=== PATIENT | male | born 1965 | race Caucasian/White ===

== ENCOUNTER 2019-06-07 13:02 | Emergency (ER) | payer BC, OTHER ==
[~2019-06-07] VITALS: Ht 177 cm; Wt 180.0 kg
[2019-06-07 14:57] LABS: BILIRUBIN,URINE NEGATIVE (NEGATIVE); CLARITY,URINE CLEAR; COLOR,URINE YELLOW; GLUCOSE, URINE (UA) NEGATIVE (NEGATIVE); KETONES,URINE NEGATIVE (NEGATIVE); LEUKOCYTE ESTERASE ,URINE NEGATIVE (NEGATIVE); NITRITE,URINE NEGATIVE (NEGATIVE); PROTEIN,URINE NEGATIVE (NEGATIVE)
--- NOTE | 2019-06-07 15:06 | Diagnostic Imaging Report ---
PROCEDURE: US Scrotum. TECHNIQUE: Multiple real-time grayscale images were obtained over the scrotum in various projections bilaterally. INDICATION: Lump on the scrotum. FINDINGS: Right testicle measures 5.7 x 2.8 x 3.5 cm, and the left testicle measures 5.8 x 2.8 x 3.8 cm. Both testes show fairly homogeneous echotexture. No discrete testicular mass is seen. There is blood flow to both testes. The right epididymis contains a 3 mm cyst. Left epididymal head is unremarkable. There is some heterogeneous tissue along the posteroinferior aspect of the left scrotum, extratesticular in location. This could potentially represent some enlargement of the epididymal tail. No hydrocele or varicocele is detected. IMPRESSION: 1. No evidence of testicular mass or vascular compromise. 2. Small right epididymal head cyst. 3. Extratesticular tissue heterogeneity posterior and inferior to the left testicle in the scrotal sac, exact etiology indeterminate. This may account for the lump felt by the patient. Follow-up could be performed to confirm stability. Dictated by: Dictated on workstation # [id number]
[2019-06-07 15:08] LABS: BACTERIA,URINE NEGATIVE /HPF; SQUAMOUS EPITHELIAL CELL,UR RARE /HPF
--- NOTE | 2019-06-07 15:18 | ED GU-Male ---
General Chief Complaint: Male Reproductive Stated Complaint: LUMP ON SCROTUM Nursing Triage Note: Pt ambulates to triage with c/o "lump in between scrotum" and sore/swollen left testicle x 1-2 wks. Pt was seen in PCP office, got PSA levels drawn and has US scheduled for Thurs. Pt denies any pain, reports a "dull ache". Pt denies any previous reproductive issues. Source: patient Exam Limitations: no limitations Allergies and Home Medications Allergies Coded Allergies: No Known Drug Allergies (Unverified , 06/07/19) Past Orfdixh-Xlnsrg-Hfntpv Hx Patient Social History Alcohol Use: Rarely Uses Recreational Drug Use: No Smoking Status: Never a Smoker 2nd Hand Smoke Exposure: No Recent Foreign Travel: No Contact w/Someone Who Travel: No Recent Infectious Disease Expo: No Recent Hopitalizations: No Physical Abuse: No Sexual Abuse: No Mistreated: No Fear: No Seasonal Allergies Seasonal Allergies: No Past Medical History Surgeries: Yes Tonsillectomy Respiratory: No Cardiac: No Neurological: No Genitourinary: No Gastrointestinal: No Musculoskeletal: Yes Chronic Back Pain Endocrine: No HEENT: No Cancer: No Psychosocial: No Integumentary: No Blood Disorders: No Physical Exam Vital Signs Vital Signs - First Documented 06/07/19 13:27 Temp 36.8 Pulse 72 Resp 19 B/P (MAP) 136/80 (98) Pulse Ox 98 O2 Delivery Room Air Capillary Refill : Less Than 3 Seconds Height, Weight, BMI Height: '" Weight: lbs. oz. kg; 57.00 BMI Method: Progress/Results/Core Measures Suspected Sepsis Recent Fever Within 48 Hours: No Infection Criteria Present: None New/Unexplained Altered Menta: No Sepsis Screen: No Definite Risk SIRS Temperature: Pulse: 72 Respiratory Rate: 19 Blood Pressure 136 /80 Mean: 98 Results/Orders Lab Results Laboratory Tests Test 06/07/19 14:45 Range/Units Urine Color YELLOW Urine Clarity CLEAR Urine pH 7.0 5-9 Urine Specific [place] 1.010 L 1.016-1.022 Urine Protein NEGATIVE NEGATIVE Urine Glucose (UA) NEGATIVE NEGATIVE Urine Ketones NEGATIVE NEGATIVE Urine Nitrite NEGATIVE NEGATIVE Urine Bilirubin NEGATIVE NEGATIVE Urine Urobilinogen 0.2 < = 1.0 MG/DL Urine Leukocyte Esterase NEGATIVE NEGATIVE Urine RBC (Auto) NEGATIVE NEGATIVE Urine RBC NONE /HPF Urine WBC NONE /HPF Urine Squamous Epithelial Cells RARE /HPF Urine Crystals NONE /LPF Urine Bacteria NEGATIVE /HPF Urine Casts NONE /LPF Urine Mucus NEGATIVE /LPF Urine Culture Indicated NO My Orders Orders - TIFF PIERCE Ua Culture If Indicated (06/07/19 13:49) Us Scrotum (Testicle) [id number] (06/07/19 13:49) Vital Signs/I&O 06/07/19 13:27 Temp 36.8 Pulse 72 Resp 19 B/P (MAP) 136/80 (98) Pulse Ox 98 O2 Delivery Room Air Capillary Refill : Less Than 3 Seconds Blood Pressure Mean: 98 Departure Impression Primary Impression: Epididymal cyst Disposition: HOME, SELF-CARE Condition: Stable/Unchanged Departure-Patient Inst. Decision time for Depature: 15:17 Referrals: JENIFFER MARTINEZ MD Add. Discharge Instructions: Call Dr. Martinez's office today to schedule an appointment for possible removal of the cyst. Return back to the emergency room for any worsening pain or any other concerns concerns as needed. All discharge instructions reviewed with patient and/or family. Voiced understanding. TIFF PIERCE Jun 07, 2019 15:18
[2019-06-07 15:25] VITALS: BP 136/80
== END 2019-06-07 15:25 | disposition home or self-care (01) ==
LOC: ER 13:04
DX: N50.3 Cyst of epididymis (principal); Z90.89 Acquired absence of other organs
CPT/HCPCS: 76870; 81000

== ENCOUNTER → 2019-12-10 | Outpatient (CLI) | payer BC, OTHER ==
--- NOTE | 2019-12-10 08:56 | Diagnostic Imaging Report ---
Indication: Right rib injury There appears be nondisplaced fractures of the right anterolateral 7th and 8th ribs and posterior 9th, 10th and 11th ribs. There are no effusions or pneumothoraces. There are some atelectasis at the right lung base. IMPRESSION: There appear to be nondisplaced fractures of 5 of the right lower ribs. Dictated by: Dictated on workstation # [id number]
== END ==
LOC: RAD 08:15
PROVIDERS: ATTEND Pediatrics
DX: S29.9XXA Unspecified injury of thorax, initial encounter (principal); W19.XXXA Unspecified fall, initial encounter
CPT/HCPCS: 71100

== ENCOUNTER → 2020-04-11 | Outpatient (CLI) | payer BC ==
--- NOTE | 2020-04-11 21:42 | Diagnostic Imaging Report ---
PROCEDURE: US Scrotum. TECHNIQUE: Multiple real-time grayscale images were obtained over the scrotum in various projections bilaterally. INDICATION: Left scrotal swelling COMPARISON with ultrasound of 06/07/2019. FINDINGS: The testicular parenchyma itself appeared symmetric and unremarkable. The epididymides appeared nonfocal. There was normal color Doppler blood flow to both testicles. Within the left hemiscrotum, there is an extratesticular mass effect posterior medial to the testicle measuring 7.0 x 6.0 x 6.0 cm. This does contain a small cystic component. No images were submitted showing its color Doppler blood flow however it is unclear if this was interrogated. There is a small left hydrocele. This process is increased in size from the prior visually, it was not fully measured on the previous study but its probably about 4 cm maximal on the comparison. The normal appearing epididymal tail could not be identified and it is conceivable that this is a lesion associated with the epididymal tail such as an adenomatoid tumor. In the appropriate clinical scenario, hematoma could have the same appearance. On the grayscale images as well as the cine loops, this did not appear to arise from the left testicle. No torsion or orchitis. IMPRESSION: Enlarging left scrotal apparently extratesticular lesion with increased mass effect measuring 7 cm maximal. Its unclear if this is a solid mass or if its a complex hematoma with a simple cystic element. Its not readily separable from the epididymal tail which could not be clearly identified and may reflect an epididymal lesion such as adenomatoid tumor. No evidence for torsion or orchitis. The right scrotal contents stable and normal. Small simple hydroceles noted bilaterally. No hernia sac visualized Dictated by: Dictated on workstation # [id number]
== END ==
LOC: RAD 13:59
PROVIDERS: ATTEND Urology
DX: N50.89 Other specified disorders of the male genital organs (principal)
CPT/HCPCS: 76870

== ENCOUNTER 2020-05-04 05:34 | Outpatient (RCR) | payer BC, OTHER ==
[~2020-05-04] VITALS: Ht 172 cm; Wt 80.7 kg
[2020-05-04] MEDS ORDERED: PSEU60TA88 PO (09:02)
[2020-05-04 09:03] VITALS: BP 126/83
--- NOTE | 2020-05-04 11:50 | Diagnostic Imaging Report ---
INDICATION: Preoperative evaluation, left epididymal mass. COMPARISON: None available TECHNIQUE: 2 radiographs of the chest dated 05/04/2020. FINDINGS: The cardiac silhouette is within normal limits in size. No significant pulmonary vascular congestion. The lungs are clear. No pleural effusion. Chronic healed right mid shaft clavicular fracture. Healing right posterolateral 8th and 9th rib fractures. No acute osseous abnormality with mild scattered osseous degenerative changes. IMPRESSION: No acute cardiopulmonary abnormality. Dictated by: Dictated on workstation # [id number]
[2020-05-09] MEDS ORDERED: TRM50T PO (08:42)
[2020-05-09] MEDS ORDERED: CEPH-507 PO (08:42)
== END 2020-05-04 13:22 | disposition home or self-care (01) ==
LOC: PREOP 05:34
PROVIDERS: ATTEND Urology
DX: Z01.818 Encounter for other preprocedural examination (principal); N50.3 Cyst of epididymis; Z20.828 Contact with and (suspected) exposure to other viral communicable diseases
CPT/HCPCS: 71046; U0002; 87635

== ENCOUNTER 2020-05-09 06:01 | Day surgery (SDC) | payer BC, OTHER ==
[~2020-05-09] VITALS: Ht 172 cm; Wt 80.7 kg
[2020-05-09] VITALS (11 sets, daily range): BP systolic 112–127; BP diastolic 69–94
[~2020-05-09 06:01] MED LIST: PSEU60TA88 PO
[2020-05-09] MEDS ORDERED: LACTATED RINGERS 1,000 ML IV PRN (06:15)
[2020-05-09] MEDS ORDERED: cefTRIAXone FOR IV USE 1,000 MG in WATER (STERILE) FOR INJECTION 10 ML IV ONE (06:15)
--- NOTE | 2020-05-09 06:53 | Progress Note-Pre Operative ---
Pre-Operative Progress Note H&P Reviewed The H&P was reviewed, patient examined and no changes noted. 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
--- NOTE | 2020-05-09 06:54 | Progress Note-Post Operative ---
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
--- NOTE | 2020-05-09 06:57 | Discharge Inst-Urology ---
Discharge Inst-Urology Reconcile Patient Problems Problems Reviewed?: Yes Final Diagnosis LT EPIDIDYMAL TUMOR, ? ADENOMATOID Patient Instructions/Follow Up Plan/Assessment/Instructions Please make appointment to been seen in office in 2 weeks. Rest till then Patient to come to office next Thursday 05/17 at 9 am to DC glenn Scrotal support for 1 week Ice to lt groin and scrotum in RR and at home for 6 hours and then PRN [place] may shower, no bath Keep bowels soft and moving Increase oral fluids for 48 hours and then as needed. Diet and Activity as tolerated. If questions or concerns contact your physician Or seek help at emergency department. JENIFFER MARTINEZ MD May 09, 2020 06:57
[2020-05-09] MEDS ORDERED: ONDANSETRON 4 MG/2 ML (SDV) Z0FRAN ONE (07:05)
[2020-05-09] MEDS ORDERED: MIDAZOLAM 2 MG/2 ML (VERSED) VIAL ONE (07:05)
[2020-05-09] MEDS ORDERED: fentaNYL INJECTION 100 MCG/2 ML AMP ONE (07:05)
[2020-05-09] MEDS ORDERED: proPOfol 200 MG/20 ML (DIPRIVAN) VIAL IV ONE (07:05)
[2020-05-09] MEDS ORDERED: LIDOCAINE PF 2% 5 ML (XYLOCAINE) VIAL ONE (07:05)
[2020-05-09] MEDS ORDERED: SEVOFLURANE (ULTANE) 15 ML INHAL SOLN ONE (07:05)
[2020-05-09] MEDS ORDERED: ROCURONIUM 10 MG/ML 5 ML SYRINGE IV ONE (07:35)
[2020-05-09] MEDS ORDERED: GLYCOPYRROLATE 0.2 MG/ML (ROBINUL) 2 ML VIAL ONE (07:46)
[2020-05-09] MEDS ORDERED: NEOSTIGMINE 3 MG/3 ML VIAL ONE (07:46)
[2020-05-09] MEDS ORDERED: KETOROLAC 30 MG/ML VIAL ONE (07:58)
[2020-05-09] MEDS ORDERED: HYDROmorphone 2 MG/ML VIAL (DILAUDID) IV ONE (08:30)
[2020-05-09] MEDS ORDERED: ONDANSETRON 4 MG/2 ML (SDV) Z0FRAN IVP PRN (08:30)
[2020-05-09] MEDS ORDERED: TRM50T PO ×2 (08:42)
[2020-05-09] MEDS ORDERED: CEPH-507 PO ×2 (08:42)
--- NOTE | 2020-05-09 09:58 | Anesthesia-General Post-Op ---
General Patient Condition Mental Status/LOC: Same as Preop Cardiovascular: Satisfactory Nausea/Vomiting: Absent Respiratory: Satisfactory Pain: Controlled Complications: Absent Post Op Complications Complications None Follow Up Care/Instructions Patient Instructions None needed. Anesthesia/Patient Condition Patient Condition Patient is doing well, no complaints, stable vital signs, no apparent adverse anesthesia problems. No complications reported per nursing. D/C home per [facility] Criteria: Yes MYRA MEREDITH CRNA May 09, 2020 09:58
--- NOTE | 2020-05-09 11:31 | OPERATIVE REPORT ---
DATE OF SERVICE: 05/09/2020 PREOPERATIVE DIAGNOSIS: Left epididymal tumor, possible adenomatoid. POSTOPERATIVE DIAGNOSIS: Left epididymal tumor, possible adenomatoid. OPERATION PERFORMED: Left radical orchiectomy. SURGEON: Ezequiel Martinez MD. REST ROOM MATRON: Narinder Dolan DO. ANESTHESIA: General. COMPLICATIONS: None. DESCRIPTION OF PROCEDURE: Under satisfactory general anesthesia, the patient in supine position, abdomen, genitalia and thigh were prepped and draped in the usual sterile fashion. A left inguinal incision was made along the skin crease, carried down to the April's fascia and then the external oblique aponeurosis. This was then incised along the direction of the fibers. The ilioinguinal nerve was identified and preserved throughout the surgery. Spermatic cord was identified and dissected all the way up to the internal ring where it was clamped doubly, and suture ligated doubly. Dissection was carried down towards the scrotum in a combination of blunt as well as sharp dissection to deliver the big mass of the epididymis and the testicle and the wound. The gubernacular attachments were severed and ligated with 0 chromic. Bleeders were either cauterized or ligated with 3-0 chromic catgut and hemostasis was complete. Closure was performed in layer, the external oblique aponeurosis with a running 2-0 chromic catgut, the fascia with interrupted 3-0 plain and the skin with glenn. Dressing was applied. Estimated blood loss was less than 50 mL, none of which was replaced. Needle, sponge, instrument count correct x2. The patient tolerated the procedure and anesthesia well and was sent to recovery room in stable condition. Instructions were given to his . Job ID: [id number] DocumentID: [id number] Dictated Date: 05/09/2020 08:14:36 Pathology Laboratory Director Date: 05/09/2020 11:31:12 Dictated By: EZEQUIEL MARTINEZ MD
== END 2020-05-09 10:20 | disposition home or self-care (01) ==
LOC: SDC 06:01 → EDSTATUS 08:00 → SDC 10:20
PROVIDERS: ATTEND Urology
DX: C63.0 Malignant neoplasm of epididymis (principal)
CPT/HCPCS: 87081; 88309; 88341; 88342

== ENCOUNTER → 2020-05-18 | Outpatient (CLI) | payer BC, OTHER ==
[~2020-05-18] MED LIST changes: +CATHETER FLUSH 10 ML SYR IV PRN; +CEPH-507 PO; +HOLD METFORMIN - RECEIVED CONTRAST 20 ML VIAL IV SCH; +IOHEXOL 350 MG/ML 100 ML (OMNIPAQUE 350) VIAL IV ONE; +NS 100 ML (IVPB) BAG IV ONE; +TRM50T PO
[2020-05-18 08:19] LABS: BUN/CREATININE RATIO 11; CREATININE SERUM 0.94 MG/DL (0.60-1.30); GFR ESTIMATED > 60
--- NOTE | 2020-05-18 10:01 | Diagnostic Imaging Report ---
PROCEDURE: CT chest, abdomen, and pelvis with contrast. TECHNIQUE: Multiple contiguous axial images were obtained through the chest, abdomen, and pelvis after the administration of intravenous contrast. Auto Exposure Controls were utilized during the CT exam to meet ALARA standards for radiation dose reduction. INDICATION: Left scrotal liposarcoma. No prior studies are available for comparison. CT CHEST: No axillary lymphadenopathy is detected. No definite mediastinal or hilar lymphadenopathy is identified. There is no pericardial or pleural fluid. There is a subpleural semisolid density posterior lateral right lower lobe measuring 18 mm. No other parenchymal nodules are identified. There appear to be some healed rib fractures posteriorly on the right. IMPRESSION: 1. No evidence of thoracic lymphadenopathy. 2. Semisolid rounded density posterior lateral right lower lobe, indeterminate. This could represent an area of scarring as patient does have several healed right-sided posterior rib fractures. Close follow-up with repeat CT chest in 3 months could be performed to confirm stability. CT abdomen and pelvis: No discrete liver mass is identified. Gallbladder is unremarkable. No biliary ductal dilatation is seen. Pancreas and spleen are unremarkable. No adrenal mass is identified. Kidneys are unremarkable. Aorta is non-aneurysmal. No central retroperitoneal or mesenteric lymphadenopathy is seen. The small and large bowel loops are normal caliber. No obstruction is identified. There is no free fluid or fluid collection. There are postsurgical changes in the left lower quadrant. Small amount of subcutaneous gas and ill-defined fluid likely from recent biopsy is noted. No definite inguinal or iliac lymphadenopathy is seen. Bladder and prostate are unremarkable. IMPRESSION: There are postsurgical changes left lower quadrant abdominal wall. No abdominal or pelvic lymphadenopathy or mass is detected. Dictated by: Dictated on workstation # [id number]
== END ==
LOC: RAD 08:45
PROVIDERS: ATTEND Urology
DX: C63.2 Malignant neoplasm of scrotum (principal); J98.4 Other disorders of lung; Z98.890 Other specified postprocedural states
CPT/HCPCS: 36415; 71260; 74177; 82565; 84520

== ENCOUNTER → 2020-05-22 | Outpatient (CLI) | payer BC, OTHER ==
[~2020-05-22] MED LIST changes: -CATHETER FLUSH 10 ML SYR IV PRN; -HOLD METFORMIN - RECEIVED CONTRAST 20 ML VIAL IV SCH; -IOHEXOL 350 MG/ML 100 ML (OMNIPAQUE 350) VIAL IV ONE; -NS 100 ML (IVPB) BAG IV ONE
--- NOTE | 2020-05-22 13:40 | Diagnostic Imaging Report ---
INDICATION: Left scrotal liposarcoma. Patient was administered 25.6 mCi technetium 99m MDP intravenously and whole-body imaging was performed after a 3-hour delay. No prior studies are available for comparison. There is normal uptake of activity by the axial and appendicular skeleton. There is uptake by the kidneys with excretion into the urinary bladder. Several foci of uptake are identified involving the posterior ribs on the right, likely representing healed rib fractures. No other suspicious foci are seen. There are no findings to suggest osseous metastatic disease. IMPRESSION: No scintigraphic evidence of osseous metastatic disease. Dictated by: Dictated on workstation # [id number]
== END ==
LOC: CARD 09:30
PROVIDERS: ATTEND Urology
DX: C63.2 Malignant neoplasm of scrotum (principal)
CPT/HCPCS: 78306; A9503

== ENCOUNTER 2020-09-15 11:35 | Outpatient (RCR) | payer BC, OTHER ==
[2020-06-22 10:29] LABS: BASOPHILS # (AUTO) 0.1 10^3/uL (0.0-0.1); BASOPHILS % (AUTO) 1 % (0-10); EOSINOPHILS # (AUTO) 0.1 10^3/uL (0.0-0.3); EOSINOPHILS % (AUTO) 3 % (0-10); HEMATOCRIT 47 % (40-54); HEMOGLOBIN 15.9 g/dL (13.3-17.7); LYMPHOCYTES # (AUTO) 1.4 10^3/uL (1.0-4.0); LYMPHOCYTES % (AUTO) 30 % (12-44); MEAN CORPUSCULAR HEMOGLOBIN 30 pg (25-34); MEAN CORPUSCULAR HGB CONC 34 g/dL (32-36); MEAN CORPUSCULAR VOLUME 88 fL (80-99); MEAN PLATELET VOLUME 9.2 fL (9.0-12.2); MONOCYTES # (AUTO) 0.8 10^3/uL (0.0-1.0); MONOCYTES % (AUTO) 16 % (0-12); NEUTROPHILS # (AUTO) 2.3 10^3/uL (1.8-7.8); NEUTROPHILS % (AUTO) 50 % (42-75); PLATELET COUNT 233 10^3/uL (130-400); WHITE BLOOD COUNT 4.6 10^3/uL (4.3-11.0)
[2020-06-22 10:43] LABS: ALANINE AMINOTRANSFERASE 28 U/L (0-55); ALBUMIN 4.3 GM/DL (3.2-4.5); ALKALINE PHOSPHATASE 73 U/L (40-136); BILIRUBIN,TOTAL 0.6 MG/DL (0.1-1.0); BUN/CREATININE RATIO 7; CALCIUM 9.4 MG/DL (8.5-10.1); CARBON DIOXIDE 25 MMOL/L (21-32); CHLORIDE 104 MMOL/L (98-107); CREATININE SERUM 0.96 MG/DL (0.60-1.30); GFR ESTIMATED > 60; GLUCOSE 104 MG/DL (70-105); POTASSIUM 4.2 MMOL/L (3.6-5.0); SODIUM 138 MMOL/L (135-145); TOTAL PROTEIN 7.8 GM/DL (6.4-8.2)
[~2020-09-15 11:35] MED LIST changes: -CATHETER FLUSH 10 ML SYR IV PRN; -HOLD METFORMIN - RECEIVED CONTRAST 20 ML VIAL IV SCH; -IOHEXOL 350 MG/ML 100 ML (OMNIPAQUE 350) VIAL IV ONE; -NS 100 ML (IVPB) BAG IV ONE
[2020-09-15 11:49] LABS: BASOPHILS # (AUTO) 0.1 10^3/uL (0.0-0.1); BASOPHILS % (AUTO) 1 % (0-10); EOSINOPHILS # (AUTO) 0.2 10^3/uL (0.0-0.3); EOSINOPHILS % (AUTO) 3 % (0-10); HEMATOCRIT 48 % (40-54); HEMOGLOBIN 16.3 g/dL (13.3-17.7); LYMPHOCYTES # (AUTO) 1.5 10^3/uL (1.0-4.0); LYMPHOCYTES % (AUTO) 26 % (12-44); MEAN CORPUSCULAR HEMOGLOBIN 31 pg (25-34); MEAN CORPUSCULAR HGB CONC 34 g/dL (32-36); MEAN CORPUSCULAR VOLUME 91 fL (80-99); MEAN PLATELET VOLUME 9.2 fL (9.0-12.2); MONOCYTES # (AUTO) 0.8 10^3/uL (0.0-1.0); MONOCYTES % (AUTO) 13 % (0-12); NEUTROPHILS # (AUTO) 3.3 10^3/uL (1.8-7.8); NEUTROPHILS % (AUTO) 57 % (42-75); PLATELET COUNT 240 10^3/uL (130-400); WHITE BLOOD COUNT 5.8 10^3/uL (4.3-11.0)
[2020-09-15 12:12] LABS: ALANINE AMINOTRANSFERASE 34 U/L (0-55); ALBUMIN 4.3 GM/DL (3.2-4.5); ALKALINE PHOSPHATASE 78 U/L (40-136); BILIRUBIN,TOTAL 0.6 MG/DL (0.1-1.0); BUN/CREATININE RATIO 8; CARBON DIOXIDE 26 MMOL/L (21-32); CHLORIDE 102 MMOL/L (98-107); CREATININE SERUM 0.87 MG/DL (0.60-1.30); GFR ESTIMATED > 60; GLUCOSE 85 MG/DL (70-105); POTASSIUM 4.5 MMOL/L (3.6-5.0); SODIUM 136 MMOL/L (135-145); TOTAL PROTEIN 7.5 GM/DL (6.4-8.2)
== END 2020-09-20 | disposition home or self-care (01) ==
LOC: ONC 11:35
PROVIDERS: ATTEND Internal Medicine Hematology & Oncology
DX: C49.9 Malignant neoplasm of connective and soft tissue, unspecified (principal)
CPT/HCPCS: 80053; 83615; 85025; G0463; 99214

== ENCOUNTER → 2020-09-15 | Outpatient (CLI) | payer BC, OTHER ==
[~2020-09-15] MED LIST changes: +CATHETER FLUSH 10 ML SYR IV PRN; +HOLD METFORMIN - RECEIVED CONTRAST 20 ML VIAL IV SCH; +IOHEXOL 350 MG/ML 100 ML (OMNIPAQUE 350) VIAL IV ONE; +NS 100 ML (IVPB) BAG IV ONE
[2020-09-15] MEDS: CATHETER FLUSH 10 ML SYR IV PRN ×2 (10:21→11:10)
[2020-09-15 10:59] LABS: BUN/CREATININE RATIO 9; CREATININE SERUM 0.87 MG/DL (0.60-1.30); GFR ESTIMATED > 60
--- NOTE | 2020-09-15 11:55 | Diagnostic Imaging Report ---
PROCEDURE: CT chest with contrast, CT abdomen and pelvis with and without contrast. TECHNIQUE: Pre and post intravenous contrast axial imaging of the abdomen and pelvis and post contrast axial imaging of the chest were performed. Auto Exposure Controls were utilized during the CT exam to meet ALARA standards for radiation dose reduction. INDICATION: Malignant neoplasm of connective tissue. Correlation is made with prior CT from 05/18/2020. CT CHEST: No axillary lymphadenopathy is detected. No mediastinal or hilar lymphadenopathy is detected. There is no pericardial or pleural fluid identified. Semisolid subpleural nodule posterolateral right lower lobe is stable 18 mm. No new pulmonary parenchymal abnormality is identified. IMPRESSION: Stable CT chest since 05/18/2020. CT abdomen and pelvis: No focal liver mass is identified. Gallbladder is unremarkable. There is no biliary ductal dilatation. The pancreas and spleen are unremarkable. No adrenal mass is identified. Kidneys are unremarkable. Aorta is nonaneurysmal. No central retroperitoneal or mesenteric lymphadenopathy is seen. The bowel loops are normal caliber. Minimal postsurgical changes subcutaneous fat left lower quadrant is noted. Bladder is unremarkable. No pelvic lymphadenopathy is seen. Prostate is unremarkable. Bony structures are nonacute. IMPRESSION: Stable CT abdomen and pelvis since 05/18/2020. No abdominal or pelvic lymphadenopathy or evidence of metastatic disease is identified. Dictated by: Dictated on workstation # [id number]
--- NOTE | 2020-09-15 14:22 | Diagnostic Imaging Report ---
INDICATION: Malignant neoplasm of connective tissue, left scrotal liposarcoma.. TECHNIQUE: The patient was administered 27.5 mCi technetium 99m MDP intravenously. Anterior and posterior whole-body planar images are obtained. CORRELATION STUDY: 05/22/2020 FINDINGS: There are continued multifocal areas of uptake about the right posterior ribs. These are in a somewhat linear distribution and overall appear generally less intense from previous. No definitive new rib lesion. The bony calvarium, bilateral shoulder girdles, sternum appearing unremarkable. Visualized spine, sacrum, pelvis and lower extremities are unremarkable. There is mild degenerative-type uptake at the bilateral knees as well as region of the great toe. IMPRESSION: 1. Stable bone scan. No new areas of osseous uptake to suggest osseous blastic metastatic disease. 2. Uptake about the right posterior ribs does persist but overall has diminished in severity, likely owing to healed fracture deformities. Dictated by: Dictated on workstation # [id number]
== END ==
LOC: CARD 11:00
PROVIDERS: ATTEND Internal Medicine Hematology & Oncology
DX: C49.9 Malignant neoplasm of connective and soft tissue, unspecified (principal); C63.2 Malignant neoplasm of scrotum
CPT/HCPCS: 71260; 74178; 78306; 82565; 84520; A9503; 36415

== ENCOUNTER 2020-09-21 10:57 | Outpatient (RCR) | payer BC | END 2020-12-01 14:37 | disposition home or self-care (01) | LOC: ONC 10:57 | PROVIDERS: ATTEND Internal Medicine Hematology & Oncology | DX: C63.0 Malignant neoplasm of epididymis (principal); Z79.891 Long term (current) use of opiate analgesic; Z79.899 Other long term (current) drug therapy | CPT/HCPCS: 99213 ==

== ENCOUNTER → 2021-01-12 | Outpatient (CLI) | payer BC, OTHER ==
[~2021-01-12] MED LIST changes: +CATHETER FLUSH 10 ML SYR IV PRN; +HOLD METFORMIN - RECEIVED CONTRAST 20 ML VIAL IV SCH; +IOHEXOL 350 MG/ML 100 ML (OMNIPAQUE 350) VIAL IV ONE; +NS 100 ML (IVPB) BAG IV ONE
--- NOTE | 2021-01-12 11:41 | Diagnostic Imaging Report ---
PROCEDURE: CT of the chest and pelvis with contrast and CT of the abdomen with and without contrast. TECHNIQUE: Precontrast acquisitions were acquired through the abdomen. Multiple contiguous axial images were obtained through the chest, abdomen and pelvis after administration of intravenous contrast. Auto Exposure Controls were utilized during the CT exam to meet ALARA standards for radiation dose reduction. 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 Correlation is made with prior CT from 09/15/2020. CT CHEST: No axillary or supraclavicular lymphadenopathy is seen. No mediastinal or hilar lymphadenopathy is detected. There is no pericardial or pleural fluid detected. Lung parenchymal evaluation shows some minimal scarring in the right lower lobe. No nodule, mass or infiltrate is detected. IMPRESSION: Continued stable CT chest since 09/15/2020. No thoracic lymphadenopathy or evidence of metastatic disease is detected. CT abdomen and pelvis: The liver is unremarkable. No discrete mass is identified. Gallbladder is unremarkable. There is no biliary ductal dilatation. The pancreas and spleen are unremarkable. No adrenal mass is detected. Kidneys are unremarkable. Aorta is nonaneurysmal. No central retroperitoneal or mesenteric lymphadenopathy is seen. Small and large bowel loops are normal caliber. There is no free fluid or fluid collection. The bladder and prostate are unremarkable. No inguinal or iliac lymphadenopathy is detected. Bony structures are unremarkable. IMPRESSION: Continued stable CT abdomen and pelvis since 09/15/2020. No abdominal or pelvic lymphadenopathy or evidence of metastatic disease is detected. Dictated by: Dictated on workstation # [id number]
== END ==
LOC: CARD 11:00
PROVIDERS: ATTEND Internal Medicine Hematology & Oncology
DX: C62.92 Malignant neoplasm of left testis, unspecified whether descended or undescended (principal)
CPT/HCPCS: 71260; 74178

== ENCOUNTER 2021-01-23 08:55 | Outpatient (RCR) | payer BC, OTHER ==
[2021-01-12 10:22] LABS: BASOPHILS # (AUTO) 0.1 10^3/uL (0.0-0.1); BASOPHILS % (AUTO) 1 % (0-10); EOSINOPHILS # (AUTO) 0.2 10^3/uL (0.0-0.3); EOSINOPHILS % (AUTO) 3 % (0-10); HEMATOCRIT 48 % (40-54); HEMOGLOBIN 16.8 g/dL (13.3-17.7); LYMPHOCYTES # (AUTO) 1.9 10^3/uL (1.0-4.0); LYMPHOCYTES % (AUTO) 37 % (12-44); MEAN CORPUSCULAR HEMOGLOBIN 31 pg (25-34); MEAN CORPUSCULAR HGB CONC 35 g/dL (32-36); MEAN CORPUSCULAR VOLUME 89 fL (80-99); MEAN PLATELET VOLUME 9.2 fL (9.0-12.2); MONOCYTES # (AUTO) 0.8 10^3/uL (0.0-1.0); MONOCYTES % (AUTO) 16 % (0-12); NEUTROPHILS # (AUTO) 2.1 10^3/uL (1.8-7.8); NEUTROPHILS % (AUTO) 42 % (42-75); PLATELET COUNT 225 10^3/uL (130-400)
[2021-01-12 10:41] LABS: ALBUMIN 4.4 GM/DL (3.2-4.5); CALCIUM 9.8 MG/DL (8.5-10.1); CREATININE SERUM 1.01 MG/DL (0.60-1.30); POTASSIUM 4.2 MMOL/L (3.6-5.0); TOTAL PROTEIN 7.8 GM/DL (6.4-8.2)
[2021-01-12 11:00] LABS: BILIRUBIN,TOTAL 0.7 MG/DL (0.1-1.0)
--- NOTE | 2021-01-12 14:42 | Diagnostic Imaging Report ---
INDICATION: Malignant neoplasm of connecting and soft tissue. Patient was administered 26.6 mCi technetium 99m MDP intravenously and whole-body imaging was performed after 3 hour delay. Correlation is made with prior whole body bone scan from 09/15/2020. Uptake of activity by the axial and appendicular skeletons noted presenting by the kidneys with excretion to urinary bladder. Previously noted subtle uptake involving the multiple posterior ribs on the right appears less prominent on today's study. No suspicious foci are identified on today's exam. IMPRESSION: Stable whole-body bone scan. No definite scintigraphic evidence of osseous metastatic disease is detected. Dictated by: Dictated on workstation # [id number]
[~2021-01-23 08:55] MED LIST changes: -CATHETER FLUSH 10 ML SYR IV PRN; -HOLD METFORMIN - RECEIVED CONTRAST 20 ML VIAL IV SCH; -IOHEXOL 350 MG/ML 100 ML (OMNIPAQUE 350) VIAL IV ONE; -NS 100 ML (IVPB) BAG IV ONE
== END 2021-04-12 | disposition home or self-care (01) ==
LOC: ONC 08:55
PROVIDERS: ATTEND Internal Medicine Hematology & Oncology
DX: C63.0 Malignant neoplasm of epididymis (principal); Z79.891 Long term (current) use of opiate analgesic; Z79.899 Other long term (current) drug therapy
CPT/HCPCS: 78306; 80053; 83615; 85025; A9503; 99213

== ENCOUNTER 2021-04-19 07:46 | Outpatient (RCR) | payer OTHER ==
[~2021-04-19 07:46] MED LIST changes: -BARIUM SUSPENSION 2.1% (VANILLA SILQ) 450 ML PO ONE; -CATHETER FLUSH 10 ML SYR IV PRN; -HOLD METFORMIN - RECEIVED CONTRAST 20 ML VIAL IV SCH; -IOHEXOL 350 MG/ML 100 ML (OMNIPAQUE 350) VIAL IV ONE; -NS 100 ML (IVPB) BAG IV ONE
[2021-04-19 08:13] LABS: BASOPHILS # (AUTO) 0.1 10^3/uL (0.0-0.1); BASOPHILS % (AUTO) 1 % (0-10); EOSINOPHILS # (AUTO) 0.2 10^3/uL (0.0-0.3); EOSINOPHILS % (AUTO) 4 % (0-10); HEMATOCRIT 47 % (40-54); HEMOGLOBIN 16.4 g/dL (13.3-17.7); LYMPHOCYTES # (AUTO) 1.5 10^3/uL (1.0-4.0); LYMPHOCYTES % (AUTO) 31 % (12-44); MEAN CORPUSCULAR HEMOGLOBIN 31 pg (25-34); MEAN CORPUSCULAR HGB CONC 35 g/dL (32-36); MEAN CORPUSCULAR VOLUME 88 fL (80-99); MEAN PLATELET VOLUME 9.1 fL (9.0-12.2); MONOCYTES # (AUTO) 0.8 10^3/uL (0.0-1.0); MONOCYTES % (AUTO) 17 % (0-12); NEUTROPHILS # (AUTO) 2.1 10^3/uL (1.8-7.8); NEUTROPHILS % (AUTO) 46 % (42-75); PLATELET COUNT 219 10^3/uL (130-400); WHITE BLOOD COUNT 4.6 10^3/uL (4.3-11.0)
[2021-04-19 08:47] LABS: BILIRUBIN,TOTAL 0.7 MG/DL (0.1-1.0); CALCIUM 9.1 MG/DL (8.5-10.1); CREATININE SERUM 0.99 MG/DL (0.60-1.30); POTASSIUM 4.3 MMOL/L (3.6-5.0); TOTAL PROTEIN 7.2 GM/DL (6.4-8.2)
== END 2021-05-18 | disposition home or self-care (01) ==
LOC: ONC 07:46
PROVIDERS: ATTEND Internal Medicine Hematology & Oncology
DX: C63.0 Malignant neoplasm of epididymis (principal); Z79.891 Long term (current) use of opiate analgesic; Z79.899 Other long term (current) drug therapy; Z90.79 Acquired absence of other genital organ(s)
CPT/HCPCS: 80053; 83615; 85025

== ENCOUNTER → 2021-04-19 | Outpatient (CLI) | payer OTHER ==
[~2021-04-19] MED LIST changes: +BARIUM SUSPENSION 2.1% (VANILLA SILQ) 450 ML PO ONE; +CATHETER FLUSH 10 ML SYR IV PRN; +HOLD METFORMIN - RECEIVED CONTRAST 20 ML VIAL IV SCH; +IOHEXOL 350 MG/ML 100 ML (OMNIPAQUE 350) VIAL IV ONE; +NS 100 ML (IVPB) BAG IV ONE
--- NOTE | 2021-04-19 09:33 | Diagnostic Imaging Report ---
EXAMINATION: CT chest with intravenous contrast, CT abdomen and pelvis without and with intravenous contrast. TECHNIQUE: Pre and post intravenous contrast axial imaging of the abdomen and pelvis and post contrast axial imaging of the chest were performed. All CT scans use one or more of the following dose optimizing techniques: automated exposure control, MA and/or KvP adjustment based on patient size and exam type or iterative reconstruction. HISTORY: MALIGNANT NEOPLASM OF CONNECTIVE TISSUE COMPARISON: 09/15/2020 FINDINGS: Thyroid: The thyroid is normal. Mediastinum: Heart size is normal without significant pericardial effusion. The aorta is normal in caliber. No suspicious lymphadenopathy. Lungs and airways: The lungs are clear without consolidation, pleural effusion, or pneumothorax. Stable atelectasis or scarring in the right lung base. No new suspicious pulmonary lesion. The airways are normal. Solid organs: The liver is normal without focal lesion. The gallbladder is normal. There is no biliary ductal dilation. Pancreas is normal. Spleen is normal. Adrenal glands are normal. The kidneys are normal without hydronephrosis. Bowel: The stomach and small bowel are normal without obstruction. The colon and appendix are normal. Peritoneum: There is no intraperitoneal free fluid or free air. No suspicious lymphadenopathy. Vasculature: Normal without aneurysm. Musculoskeletal: Degenerative changes of the spine without suspicious osseous lesion or compression fracture. No suspicious soft tissue lesion. Pelvis: The prostate gland is normal. The urinary bladder is normal. IMPRESSION: 1. No findings of metastatic disease within the chest, abdomen, or pelvis. Stable exam. Dictated by: Dictated on workstation # [id number]
== END ==
LOC: RAD 08:45
PROVIDERS: ATTEND Internal Medicine Hematology & Oncology
DX: C49.9 Malignant neoplasm of connective and soft tissue, unspecified (principal)
CPT/HCPCS: 71260; 74178

== ENCOUNTER → 2021-05-23 | Outpatient (CLI) | payer OTHER | LOC: EDSTATUS 05-19 16:28 → ONC 09:28 | PROVIDERS: ATTEND Internal Medicine Hematology & Oncology | DX: C63.0 Malignant neoplasm of epididymis (principal); Z90.79 Acquired absence of other genital organ(s) | CPT/HCPCS: 99213 ==